=== PATIENT | female | born 1975 | race African-American/Black ===

== ENCOUNTER → 2016-06-04 | Outpatient (REF) | payer OTHER ==
[2016-06-04 14:26] LABS: PERCENT SATURATION 31.8 % (13.2-37.4)
== END ==
LOC: M LAB REF 13:12
PROVIDERS: ATTEND Internal Medicine Medical Oncology
DX: D50.9 Iron deficiency anemia, unspecified (principal)

== ENCOUNTER 2016-06-23 09:34 | Emergency (ER) | payer OTHER ==
[~2016-06-23] VITALS: Ht 160 cm; Wt 62.1 kg
[2016-06-23 09:37] VITALS: BP 108/66
--- NOTE | 2016-06-23 11:28 | REP ---
RIGHT LOWER EXTREMITY DOPPLER VENOUS ULTRASOUND: 06/23/2016 COMPARISON: None. CLINICAL HISTORY: Posterior right leg pain. Evaluate for DVT. TECHNIQUE: The deep venous system of the right lower extremity is evaluated with grayscale imaging, compression ultrasound, color imaging and duplex Doppler interrogation. Examination from the groin through the popliteal fossa into the proximal calf. FINDINGS: There is full compressibility from the common femoral vein in the inguinal region through the popliteal vein. Color imaging confirms patency throughout the course of the deep venous system. There is respiratory variation and augmented flow at all levels. At the popliteal fossa, there is a subtle area of hyperechogenicity with an anechoic center overall 1.3 x 1 x 0.8 cm. This could be a small hematoma with a central trace fluid. No definite abscess collection or other mass. The patient denies injury. IMPRESSION: 1. No Doppler venous ultrasound evidence of DVT in the right lower extremity.2. Subtle hyperechoic area 1.3 x 1 x 0.8 cm in the popliteal fossa with a small anechoic central zone. Possible hematoma or other but no known injury. There is no color flow within it. Signed by Nitin Alanis MD 06/23/2016 05:39 P
== END 2016-06-23 11:43 | disposition home or self-care (01) ==
LOC: M ED 10:43
DX: M79.81 Nontraumatic hematoma of soft tissue (principal); D64.9 Anemia, unspecified